=== PATIENT | male | born 1930 | race Caucasian/White ===

== ENCOUNTER 2017-10-22 16:05 | Emergency (ER) | payer OTHER ==
[~2017-10-22] VITALS: Ht 175.3 cm; Wt 78.5 kg
[2017-10-22] MEDS ORDERED: LISINOPRIL10 MG (17:09)
[2017-10-22] MEDS ORDERED: NORVASC2.5 M1 (17:09)
[2017-10-22] MEDS ORDERED: BENTYL10 MG/1 ML (17:10)
== END 2017-10-23 00:34 | disposition home or self-care (01) ==
LOC: ER 16:05
DX: K57.90 Diverticulosis of intestine, part unspecified, without perforation or abscess without bleeding (principal); N28.1 Cyst of kidney, acquired; N21.0 Calculus in bladder